=== PATIENT | male | born 1985 | race Caucasian/White ===

== ENCOUNTER 2020-07-21 13:06 | Emergency (ER) | payer OTHER ==
[~2020-07-21] VITALS: Ht 188 cm; Wt 136.1 kg
[2020-07-21] MEDS ORDERED: PREVACID30 MG PO (14:31)
[2020-07-21 14:39] VITALS: BP 113/70
== END 2020-07-21 14:39 | disposition home or self-care (01) ==
LOC: ER 13:06
DX: R10.13 Epigastric pain (principal); R11.2 Nausea with vomiting, unspecified; R05 Cough